=== PATIENT | female | born 1965 ===

== ENCOUNTER 2018-06-10 07:06 | Inpatient (IN) | payer OTHER ==
[2018-06-10 07:29] VITALS: BMI 25.7
[2018-06-10 07:59] LABS: BASO % 0.5 % (0.0-2.0); EOS # 0.1 K/uL (0.0-0.7); EOS % 2.2 % (0.0-4.0); HEMOGLOBIN 9.7 g/dL (12.0-16.0); LYMPH # 1.7 K/uL (1.0-4.3); LYMPH % 35.3 % (20.0-40.0); MEAN CELL VOLUME 99.7 fl (81.0-99.0); MEAN CORPUSCULAR HEMOGLOBIN 33.6 pg (27.0-31.0); MEAN CORPUSCULAR HGB CONC 33.7 g/dL (33.0-37.0); MONO # 0.3 K/uL (0.0-0.8); MONO % 7.5 % (0.0-10.0); NEUT # 2.6 K/uL (1.8-7.0); NEUT % 54.5 % (50.0-75.0); NRBC % 0.1 % (0.0-0.0); RBC 2.87 Mil/uL (3.80-5.20); RED CELL DISTRIBUTION WIDTH 15.1 % (11.5-14.5); WHITE BLOOD COUNT 4.7 K/uL (4.8-10.8)
--- NOTE | 2018-06-10 08:08 | ED PDOC ---
HPI: General Adult Time Seen by Provider: 06/10/18 07:14 Chief Complaint (Nursing): Medical Clearance Chief Complaint (Provider): Medical Clearance History Per: Patient History/Exam Limitations: no limitations Additional Complaint(s): 53 years old female with history of kidney failure presents to the ED requesting dialysis today. Patient reports her last session was on Saturday. She states she lives in [place], used to have dialysis in [place] but wants to start it here. Patient offers no complaints at this time. She denies any nausea, vomiting, palpitations, abdominal pain, shortness of breath, chest pain or back pain. PMD: non provided Past Medical History Reviewed: Historical Data, Nursing Documentation, Vital Signs Vital Signs: Last Vital Signs Temp 98.6 F 06/10/18 07:31 Pulse 80 06/10/18 07:31 Resp 20 06/10/18 07:31 BP 155/82 H 06/10/18 07:31 Pulse Ox 98 06/10/18 09:03 - Medical History PMH: HTN, End Stage Renal Disease, Chronic Kidney Disease Other PMH: dialysis , , Sat - Surgical History Other surgeries: Left sided nephrectomy - Family History Family History: States: Unknown Family Hx - Social History Current smoker - smoking cessation education provided: No Alcohol: None Drugs: Denies - Allergies Allergies/Adverse Reactions: Allergies Allergy/AdvReac Type Severity Reaction Status Date / Time No Known Allergies Allergy Verified 06/10/18 07:30 Review of Systems ROS Statement: Except As Marked, All Systems Reviewed And Found Negative Cardiovascular: Negative for: Chest Pain, Palpitations Respiratory: Negative for: Shortness of Breath Gastrointestinal: Negative for: Nausea, Vomiting, Abdominal Pain Musculoskeletal: Negative for: Back Pain Physical Exam - Reviewed Nursing Documentation Reviewed: Yes Vital Signs Reviewed: Yes - Physical Exam Appears: Positive for: Uncomfortable Head Exam: Positive for: ATRAUMATIC, NORMOCEPHALIC Skin: Positive for: Normal Color, Warm, DRY Eye Exam: Positive for: EOMI, Normal appearance, PERRL ENT: Positive for: Normal ENT Inspection Neck: Positive for: Normal, Painless ROM Cardiovascular/Chest: Positive for: Regular Rate, Rhythm. Negative for: Murmur Respiratory: Positive for: Normal Breath Sounds. Negative for: Respiratory Distress Gastrointestinal/Abdominal: Positive for: Normal Exam, Soft. Negative for: Tenderness Back: Positive for: Normal Inspection. Negative for: L CVA Tenderness, R CVA Tenderness Extremity: Positive for: Normal ROM, Other (Dialysis shunt on left arm) Neurologic/Psych: Positive for: Alert, Oriented (x3) - Laboratory Results Result Diagrams: 06/10/18 07:44 06/10/18 07:44 Interpretation Of Abn Labs: 6.3 k, bun and cr elevated - ECG ECG: Positive for: Interpreted By Me, Viewed By Me ECG Rhythm: Positive for: Normal QRS, Normal ST Segment, Sinus Rhythm O2 Sat by Pulse Oximetry: 98 (RA) Pulse Ox Interpretation: Normal - Progress ED Course And Treament: 847: Spoke with Dr. Calvin. Will admit tele. Will give further orders when pt. reaches floor. - Critical Care Total Time (In Min): 30 Documented Critical Care: Time excludes all time spent performint seperately billable procedures Medical Decision Making Medical Decision Making: Time: 728 Initial Plan: --EKG --CMP --Magnesium --Phosphorous --Troponin I --Urine dipstick --CBC --PTT --PT 0838 --Albuterol 2.5 mg INH --Calcium Chloride 341 mg --Dextrose 50% 50 ml IVP --Sodium Polystyrene 30 mg PO --Peak Flow Pre/Post Treatment Scribe Attestation: Documented by Kitty Yanes, acting as a scribe for Molina Ramos MD. Provider Scribe Attestation: All medical record entries made by the Scribe were at my direction and personally dictated by me. I have reviewed the chart and agree that the record accurately reflects my personal performance of the history, physical exam, medical decision making, and the department course for this patient. Disposition - Clinical Impression Clinical Impression: Renal failure, acute on chronic, Hyperkalemia Counseled Patient/Family Regarding: Studies Performed, Diagnosis - Disposition Disposition Time: 08:48 Condition: FAIR - Pt Status Changed To: Hospital Disposition Of: Inpatient - Admit Certification Admit to Inpatient:: After my assessment, the patient will require hospitalization for at least two midnights. This is because of the severity of symptoms shown, intensity of services needed, and/or the medical risk in this patient being treated as an outpatient.
[2018-06-10 08:28] LABS: ALB/GLOB RATIO 1.4 (1.0-2.1); ALT/SGPT 25 U/L (9-52); AST/SGOT 25 U/L (14-36); BLOOD UREA NITROGEN 74 mg/dl (7-17); CALCIUM 8.5 mg/dL (8.4-10.2); GFR NON-AFRICAN AMERICAN 3
[2018-06-10] MEDS ORDERED: Calcium Gluconate 4.65 mEq/10 ml Inj IV ONE (08:38)
[2018-06-10] MEDS ORDERED: Sod Polystyrene Sulf 15 gm/60 ml Susp PO STA (08:38)
[2018-06-10] MEDS ORDERED: Insulin Regular 100 units/ml IV STA (08:38)
[2018-06-10] MEDS ORDERED: Dextrose 50% SYRINGE Inj (50 ml) IVP ONE (08:38)
[2018-06-10] MEDS ORDERED: Albuterol 0.083% Inhal Sol (2.5 mg/3 mL) UD INH STA (08:39)
[2018-06-10] MEDS ORDERED: Sod Polystyrene Sulf 15 gm/60 ml Susp ONE (08:43)
[2018-06-10] MEDS ORDERED: Insulin Regular 100 units/ml ONE (08:44)
[2018-06-10] MEDS ORDERED: CALCIUM CHLORIDE IV ONE (08:45)
[2018-06-10] MEDS ORDERED: SODIUM CHLORIDE 0.9% IV ONE (08:45)
[2018-06-10] MEDS ORDERED: Dextrose 50% SYRINGE Inj (50 ml) ONE (08:54)
[2018-06-10 09:08] LABS: PROTHROMBIN TIME 10.8 Seconds (9.8-13.1)
[2018-06-10 09:10] LABS: PARTIAL THROMBOPLASTIN TIME 29.7 Seconds (25.6-37.1)
[2018-06-10] MEDS ORDERED: Albuterol 0.083% Inhal Sol (2.5 mg/3 mL) UD ONE (09:13)
--- NOTE | 2018-06-10 09:23 | CARD ---
APPROVED REPORT Date of service: 06/10/2018 EKG Measurement Heart [id number] CO [id number] <Conclusion> Normal sinus rhythm Normal ECG
--- NOTE | 2018-06-10 13:00 | CP.PCM.CON ---
History of Present Illness - History of Present Illness History of Present Illness: Patient is a 53 years of age female reported to the emergency room with abnormal kidney function very high potassium patient known to have end stage renal disease on maintenance hemodialysis TTS patient stated she has last hemodialysis Saturday. Patient stated she goes for outpatient dialysis and [place]. And she just moved down to this area couple days ago Past medical history Patient has history of polycystic kidney disease she is on dialysis for about 4 years and she has fistula in the left forearm History of hypertension no history of diabetes Social history not contributory Review of Systems - Constitutional Constitutional: Anorexia. absent: Chills - EENT Nose/Mouth/Throat: absent: Epistaxis, Post Nasal Drip, Sore Throat - Cardiovascular Cardiovascular: absent: Chest Pain - Respiratory Respiratory: Dyspnea on Exertion. absent: Cough, Hemoptysis - Gastrointestinal Gastrointestinal: absent: Abdominal Pain, Diarrhea - Musculoskeletal Musculoskeletal: Muscle Weakness - Neurological Neurological: absent: Confusion, Focal Weakness, Headaches - Endocrine Endocrine: Fatigue - Hematologic/Lymphatic Hematologic: absent: Easy Bleeding Past Patient History - Past Social History Alcohol: None Drugs: Denies - CARDIAC Hx Hypertension: Yes - PULMONARY Hx Respiratory Disorders: No - NEUROLOGICAL Hx Neurological Disorder: No - RENAL Hx Chronic Kidney Disease: Yes - ENDOCRINE/METABOLIC Hx Endocrine Disorders: No - HEMATOLOGICAL/ONCOLOGICAL Hx Blood Disorders: No - INTEGUMENTARY Hx Dermatological Problems: No - MUSCULOSKELETAL/RHEUMATOLOGICAL Hx Musculoskeletal Disorders: No - GASTROINTESTINAL Hx Gastrointestinal Disorders: No - GENITOURINARY/GYNECOLOGICAL Hx Genitourinary Disorders: No - PSYCHIATRIC Hx Psychophysiologic Disorder: No Hx Substance Use: No - SURGICAL HISTORY Hx Surgeries: No - ANESTHESIA Hx Anesthesia: No Meds Allergies/Adverse Reactions: Allergies Allergy/AdvReac Type Severity Reaction Status Date / Time No Known Allergies Allergy Verified 06/10/18 07:30 Physical Exam - Constitutional Appears: No Acute Distress - ENT Exam ENT Exam: Mucous Membranes Moist - Neck Exam Neck exam: Negative for: Lymphadenopathy - Respiratory Exam Respiratory Exam: NORMAL BREATHING PATTERN. absent: Chest Wall Tenderness, Rales - Cardiovascular Exam Cardiovascular Exam: REGULAR RHYTHM. absent: Gallop, JVD, Rubs - GI/Abdominal Exam GI & Abdominal Exam: absent: Guarding, Normal Bowel Sounds - Extremities Exam Extremities exam: Negative for: calf tenderness - Back Exam Back exam: absent: CVA tenderness (L), CVA tenderness (R) - Neurological Exam Neurological exam: Alert - Psychiatric Exam Psychiatric exam: Normal Affect Results - Vital Signs Recent Vital Signs: Last Vital Signs Temp 97.6 F 06/10/18 11:09 Pulse 95 H 06/10/18 11:09 Resp 18 06/10/18 11:09 BP 148/89 06/10/18 11:09 Pulse Ox 100 06/10/18 11:09 - Labs Result Diagrams: 06/10/18 07:44 06/10/18 07:44 Labs: Laboratory Results - last 24 hr 06/10/18 06/10/18 06/10/18 07:44 07:44 07:44 WBC 4.7 L RBC 2.87 L Hgb 9.7 L Hct 28.6 L MCV 99.7 H MCH 33.6 H MCHC 33.7 RDW 15.1 H Plt Count 160 MPV 8.0 Neut % (Auto) 54.5 Lymph % (Auto) 35.3 Real % (Auto) 7.5 Eos % (Auto) 2.2 Baso % (Auto) 0.5 Neut # (Auto) 2.6 Lymph # (Auto) 1.7 Real # (Auto) 0.3 Eos # (Auto) 0.1 Baso # (Auto) 0.0 PT 10.8 INR 1.0 APTT 29.7 Sodium 140 Potassium 6.3 H* Chloride 106 Carbon Dioxide 20 L Anion Gap 20 BUN 74 H Creatinine 14.1 H* Est GFR ( Amer) 3 Est GFR (Non-Af Amer) 3 Random Glucose 92 Calcium 8.5 Phosphorus 6.1 H Magnesium 2.5 H Total Bilirubin 0.5 AST 25 ALT 25 Alkaline Phosphatase 65 Troponin I < 0.0120 Total Protein 6.9 Albumin 4.0 Globulin 2.9 Albumin/Globulin Ratio 1.4 Assessment & Plan (1) ESRD (end stage renal disease) on dialysis Assessment and Plan: Patient with end stage renal disease on maintenance hemodialysis TTS Admitted with hyperkalemia and also mild uremia with very high B UN and creatinine. Patient with history of polycystic kidney disease she has been on dialysis for about 4 years and she just moved to this area We will proceed with hemodialysis consent was taken and to call psychosocial rehabilitation counselor for transfer paper Status: Acute (2) Hyperkalemia Status: Acute
--- NOTE | 2018-06-10 15:54 | CP.PCM.HP ---
History of Present Illness - History of Present Illness History of Present Illness: 53 y/o F with a PMHx Polycystic Kidney Disease presented to ED requesting hemodialysis. Last session on Saturday, pt is on -- schedule. Pt reports feeling tired but OK. Pt has been on dyalisis for ~ 4 years and has a fistula on L forearm. Pt denies fever, chills, headache, chest pain, SOB, abdominal pain , N/V/D, rash or peripheral edema. Present on Admission - Present on Admission Any Indicators Present on Admission: No Review of Systems - Constitutional Constitutional: absent: Anorexia, Chills, Fever - EENT Eyes: absent: Change in Vision Nose/Mouth/Throat: absent: Nasal Congestion, Neck Pain - Cardiovascular Cardiovascular: absent: Chest Pain, Orthopnea, Palpitations - Respiratory Respiratory: absent: Cough, Dyspnea - Gastrointestinal Gastrointestinal: absent: Abdominal Pain, Bloating, Nausea, Vomiting - Genitourinary Genitourinary: absent: Dysuria, Flank Pain, Hematuria Past Patient History - Past Social History Alcohol: None Drugs: Denies - CARDIAC Hx Hypertension: Yes - PULMONARY Hx Respiratory Disorders: No - NEUROLOGICAL Hx Neurological Disorder: No - RENAL Hx Chronic Kidney Disease: Yes - ENDOCRINE/METABOLIC Hx Endocrine Disorders: No - HEMATOLOGICAL/ONCOLOGICAL Hx Blood Disorders: No - INTEGUMENTARY Hx Dermatological Problems: No - MUSCULOSKELETAL/RHEUMATOLOGICAL Hx Musculoskeletal Disorders: No - GASTROINTESTINAL Hx Gastrointestinal Disorders: No - GENITOURINARY/GYNECOLOGICAL Hx Genitourinary Disorders: No - PSYCHIATRIC Hx Psychophysiologic Disorder: No - SURGICAL HISTORY Hx Surgeries: No - ANESTHESIA Hx Anesthesia: No Meds Allergies/Adverse Reactions: Allergies Allergy/AdvReac Type Severity Reaction Status Date / Time No Known Allergies Allergy Verified 06/10/18 07:30 Results - Vital Signs Recent Vital Signs: Last Vital Signs Temp 98 F 06/10/18 15:00 Pulse 85 06/10/18 15:05 Resp 16 06/10/18 15:05 BP 138/75 06/10/18 15:05 Pulse Ox 100 06/10/18 15:00 - Labs Result Diagrams: 06/10/18 07:44 06/10/18 07:44 Labs: Laboratory Results - last 24 hr 06/10/18 06/10/18 06/10/18 07:44 07:44 07:44 WBC 4.7 L RBC 2.87 L Hgb 9.7 L Hct 28.6 L MCV 99.7 H MCH 33.6 H MCHC 33.7 RDW 15.1 H Plt Count 160 MPV 8.0 Neut % (Auto) 54.5 Lymph % (Auto) 35.3 [place] % (Auto) 7.5 Eos % (Auto) 2.2 Baso % (Auto) 0.5 Neut # (Auto) 2.6 Lymph # (Auto) 1.7 [place] # (Auto) 0.3 Eos # (Auto) 0.1 Baso # (Auto) 0.0 PT 10.8 INR 1.0 APTT 29.7 Sodium 140 Potassium 6.3 H* Chloride 106 Carbon Dioxide 20 L Anion Gap 20 BUN 74 H Creatinine 14.1 H* Est GFR ( Amer) 3 Est GFR (Non-Af Amer) 3 Random Glucose 92 Calcium 8.5 Phosphorus 6.1 H Magnesium 2.5 H Total Bilirubin 0.5 AST 25 ALT 25 Alkaline Phosphatase 65 Troponin I < 0.0120 Total Protein 6.9 Albumin 4.0 Globulin 2.9 Albumin/Globulin Ratio 1.4 Assessment & Plan (1) ESRD (end stage renal disease) on dialysis Status: Acute (2) Hyperkalemia Status: Acute (3) PCK (polycystic kidney disease) Status: Acute - Assessment and Plan (Free Text) Assessment: --Will arrange for hemodialysis --Home medications resumed --Continue management as ordered. - Date & Time Date: 06/10/18 Time: 16:10
[2018-06-10 16:21] VITALS: BP 168/81; PULSE 76; RESP 17; TEMP 98; O2SAT 99
[2018-06-10] MEDS ORDERED: Megestrol Acetate 40 mg/ml Cup PO SCH (17:00)
[2018-06-10] MEDS ORDERED: Calcium-Vit D 500 mg-200 Units Tab UD PO SCH (17:00)
--- NOTE | 2018-06-10 23:33 | CP.PCM.PCO ---
Addendum Addendum: 06/10/18 23:27 In notified that patient wants to sign AMA Patient reports she only came for hemodialysis and she was told in ED that when done she can leave Patient explained risk of sign AMA, but does not agree to stay. AMA form signed
[2018-06-11] MEDS ORDERED: Multivitamin Vitamin B Complex (Nephro-Vite) Tab PO SCH (09:00)
[2018-06-11] MEDS ORDERED: Metoprolol Succinate 25 mg XL Tab PO SCH (09:00)
[2018-06-11] MEDS ORDERED: Pantoprazole 40 mg EC Tab PO SCH (09:00)
[2018-06-14] MEDS ORDERED: ENTECAVIR 0.5 MG PO SCH (09:00)
== END 2018-06-10 23:00 | disposition left against medical advice (07) | DRG 640 ==
LOC: H.ER 07:06 → H.ERHOLD 08:46 → H.TEL 15:29
PROVIDERS: ADMIT Family Medicine; ATTEND Family Medicine
PROC: 5A1D70Z Performance of Urinary Filtration, Intermittent, Less than 6 Hours Per Day (ICD-10-PCS; principal; 2018-06-10)
DX: E87.5 Hyperkalemia (principal); N18.6 End stage renal disease; I12.0 Hypertensive chronic kidney disease with stage 5 chronic kidney disease or end stage renal disease; Q61.3 Polycystic kidney, unspecified; Z99.2 Dependence on renal dialysis; Z90.5 Acquired absence of kidney